=== PATIENT | male | born 1950 | race Caucasian/White ===

== ENCOUNTER 2017-06-15 14:15 | Emergency (ER) | payer BC, OTHER ==
[~2017-06-15] VITALS: Ht 188 cm; Wt 137.2 kg
[~2017-06-15 14:15] MED LIST: ANTIVERT25 MG PO
[2017-06-15 14:57] LABS: EOSINOPHIL (%) 2.1 % (0-5); EOSINOPHIL COUNT 0.2 K/uL (0-0.3); HEMATOCRIT 45.5 % (38.0-50.0); IMMATURE GRANULOCYTE (%) 0.5 % (0.0-0.7); IMMATURE GRANULOCYTE COUNT 0.1 K/uL; INSTRUMENT ABS NEUTROPHIL CT 6.2 K/uL; LYMPHOCYTE COUNT 2.4 K/uL (1.0-2.8); MCH 30.2 PG (29.0-34.0); MCHC 34.3 G/DL (30.0-36.0); MONOCYTE (%) 9.1 % (3-12); MONOCYTE COUNT 0.9 K/uL (0-0.8); NEUTROPHIL (%) 63.8 % (45-76); NEUTROPHIL COUNT 6.2 K/uL (1.8-6.4); PLATELET COUNT 301 K/uL (156-360); RBC DIS.WIDTH-CV 12.2 % (11.8-14.6); RBC DIS.WIDTH-SD 39.2 % (39-53); RED BLOOD COUNT 5.17 M/uL (4.00-5.50); WHITE BLOOD COUNT 9.7 K/uL (4.1-10.2)
[2017-06-15 15:08] LABS: CHLORIDE 99 mEq/L (99-109); POTASSIUM 3.7 mEq/L (3.7-5.4); SODIUM 135 mEq/L (136-147)
[2017-06-15 15:09] LABS: GLUCOSE 127 mg/dL (70-99)
[2017-06-15 15:11] LABS: ANION GAP 11 MEQ/L (2-14)
[2017-06-15 15:13] LABS: GFR ESTIMATE (CALCULATED) > 59 mL/min/ (58.99-99999)
[2017-06-15 15:14] LABS: UREA NITROGEN (BUN) 16 mg/dL (9-23)
[2017-06-15 15:17] LABS: TROP-I INTERPRETATION NEGATIVE; TROPONIN-I < 0.01 ng/mL (0.0-0.30)
[2017-06-15 17:19] LABS: DIGOXIN 0.8 ng/mL (0.8-2.0)
[2017-06-15 18:30] LABS: ADD MIUA? NO; BILIRUBIN NEGATIVE; BLOOD NEGATIVE; COLOR YELLOW ((YELLOW)); GLUCOSE (STRIP) NEGATIVE; KETONES NEGATIVE; LEUKOCYTES NEGATIVE; NITRITE NEGATIVE; PROTEIN (STRIP) NEGATIVE; SPECIFIC GRAVITY 1.016 (1.000-1.030); UROBILINOGEN 0.2 MG/DL (0.2-1.0)
[2017-06-15 21:48] LABS: POINT-OF-CARE METER ID UU14100415
[2017-06-15] MEDS ORDERED: MECLIZINE HCL25 MG PO (21:51)
[2017-06-15 22:27] VITALS: BP 162/86
== END 2017-06-15 22:28 | disposition home or self-care (01) ==
LOC: EME 14:15
PROVIDERS: Physician Assistant; Physician Assistant Medical
DX: R42 Dizziness and giddiness (principal); R51 Headache; E78.5 Hyperlipidemia, unspecified; I10 Essential (primary) hypertension; I48.91 Unspecified atrial fibrillation; R73.03 Prediabetes; Z79.84 Long term (current) use of oral hypoglycemic drugs; Z85.9 Personal history of malignant neoplasm, unspecified
CPT/HCPCS: 70450; 70551; 80048; 80162; 81003; 82948; 84484; 85025; 93005; 99281; 99284; J2060